=== PATIENT | female | born 1950 | race Caucasian/White ===

== ENCOUNTER 2018-10-08 20:06 | Observation (INO) | payer MEDICARE ==
[2018-10-08] MEDS ORDERED: Nitro 2% OINT* (Nitroglycerin) 1 INCH/PAK PAK TOPICAL ONE (20:20)
[2018-10-08] MEDS ORDERED: Morphine 4 MG/ML VIAL (1 ml) 4 MG/ML VIAL IV ONE (20:21)
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
[2018-10-08 20:44] LABS: ABS Eosinophils 0.1 10^3/ul (0-0.6); ABS Lymphocytes 1.8 10^3/ul (1.0-4.8); ABS Monocytes 0.4 10^3/ul (0-0.8); ABS Neutrophils 3.6 10^3/ul (1.5-7.7); Eosinophil % 1.8 %; Hematocrit 36 % (35-47); Hemoglobin 11.9 g/dL (12.0-16.0); Lymphocyte % 30.2 %; Mean Corpuscular HGB Conc 33 g/dL (31-36); Mean Corpuscular Hemoglobin 27 pg (27-31); Mean Corpuscular Volume 82 fL (80-97); Mean Platelet Volume 8.4 fL (7.4-10.4); Platelet Count 159 10^3/uL (150-450); Red Blood Count 4.42 10^6 /uL (3.70-4.87); Red Cell Distribution Width 16 % (10.5-15); White Blood Count 5.9 10^3/uL (3.5-10.8)
[2018-10-08 20:45] LABS: INR 1.09 (0.82-1.09)
[2018-10-08 20:55] LABS: Albumin 4.2 g/dL (3.2-5.2); Albumin/Globulin Ratio 1.6 (1-3); BUN/Creatinine Ratio 14.3 (8-20); Calcium 9.3 mg/dL (8.6-10.3); EGFR African American 63.4 (>60); EGFR Non-African American 52.4 (>60); Globulin 2.7 g/dL (2-4); Potassium 3.7 mmol/L (3.5-5.0); Total Bilirubin 0.6 mg/dL (0.2-1.0); Total Protein 6.9 g/dL (6.4-8.9)
--- NOTE | 2018-10-08 22:15 | ED ---
Progress - Progress Note Progress Note: Receiving sign out from Dr. Heard at 2200 pending 2nd troponin, UA, and gallbladder US report. Gallbladder US: No radiographic findings to correlate with patients symptomatology. ED Provider has reviewed this report. Labs revealed no remarkable findings. The patient is still experiencing chest pain. The patient will be admitted. Dr. Moser, hospitalist, accepted the patient for admission. The plan was discussed with the patient and she was agreeable with this plan. Re-Evaluation - Re-Evaluation First Eval Re-Evaluation Time: 22:27 Comment: Patient is still experiencing chest pain. Discussed plan for admission with patient. Course/Dx - Course Course Of Treatment: Receiving sign out from Dr. Heard at 2200 pending 2nd troponin, UA, and gallbladder US report. Gallbladder US: No radiographic findings to correlate with patients symptomatology. ED Provider has reviewed this report. Labs revealed no remarkable findings. The patient is still experiencing chest pain. The patient will be admitted. Dr. Moser, hospitalist, accepted the patient for admission. The plan was discussed with the patient and she was agreeable with this plan. - Diagnoses Provider Diagnoses: Chest pain - Provider Notifications Discussed Care Of Patient With: Mila Moser Time Discussed With Above Provider: 20:15 Instructed by Provider To: Admit As Inpatient Discharge - Sign-Out/Discharge Documenting (check all that apply): Patient Departure - Admission Patient Received Moderate/Deep Sedation with Procedure: No - Discharge Plan Condition: Stable Disposition: ADMITTED TO [facility] Referrals: Marie Gu MD [Primary Care Provider] - - Attestation Statements Document Initiated by Scribe: Yes Documenting Scribe: Marco Saucedo Provider For Whom Robb is Documenting (Include Credential): Kulwinder James MD Scribe Attestation: Marco Rob scribed for Kulwinder James MD on 10/08/18 at 2226. Status of Scribe Document: Ready
[2018-10-08] MEDS ORDERED: Pantoprazole IV* 40 MG IV ONE (22:30)
[2018-10-08] MEDS ORDERED: NS 0.9% 1000 ML** 1,000 ML IV ONE (22:32)
[2018-10-08] MEDS ORDERED: Ondansetron INJ* 2 MG/ML VIAL IV ONE (22:33)
[2018-10-08] MEDS ORDERED: Morphine INJ* 2 MG/ML 1 ML SYRINGE (TWO MG - NEW SYRINGE VERSION) IV PRN (22:37)
[2018-10-08] MEDS ORDERED: Acetaminophen TAB* 325 MG PO PRN (22:37)
[2018-10-08] MEDS ORDERED: Ondansetron INJ* 2 MG/ML VIAL IV PRN (22:37)
[2018-10-08] MEDS ORDERED: Magnesium Hydroxide LIQ* 30 ML UDC PO PRN (22:39)
[2018-10-08] MEDS ORDERED: NS 0.9% 1000 ML** 1,000 ML IV SCH (22:45)
[2018-10-08 23:04] LABS: Albumin 4.1 g/dL (3.2-5.2); Albumin/Globulin Ratio 1.6 (1-3); BUN/Creatinine Ratio 16.2 (8-20); Calcium 9.2 mg/dL (8.6-10.3); EGFR African American 67.9 (>60); EGFR Non-African American 56.1 (>60); Globulin 2.5 g/dL (2-4); Total Bilirubin 0.6 mg/dL (0.2-1.0); Total Protein 6.6 g/dL (6.4-8.9)
[2018-10-09] LABS: Urine Appearance Cloudy; Urine Bacteria Absent (Absent); Urine Bilirubin Negative (Negative); Urine Blood Negative (Negative); Urine Color Yellow; Urine Glucose Negative (Negative); Urine Ketones 1+ (Negative); Urine Nitrite Negative (Negative); Urine Protein Negative (Negative); Urine Red Blood Cell Absent (Absent); Urine Specific Gravity 1.012 (1.010-1.030); Urine Urobilinogen Negative (Negative); Urine White Blood Cell 2+(11-20/hpf) (Absent)
--- NOTE | 2018-10-09 01:11 | HP ---
CC: Dr. Marie Perdomo * HISTORY AND PHYSICAL: DATE OF ADMISSION: 10/08/18 PRIMARY CARE PROVIDER: Dr. Marie Perdomo. CHIEF COMPLAINT: Chest pain and abdominal pain. HISTORY OF PRESENT ILLNESS: Mrs. Carbajal is a 67-year-old female with past medical history of anxiety and depression as well as hypertension who presented to the hospital after eating spicy fish while dining out and developed left upper quadrant abdominal pain. The patient stated that almost instantaneously after she ate the fish, she started experiencing stomach pain. She indicated her left upper quadrant of the abdomen. Subsequently, on the way home, she became nauseated and nearly passed out. She stated that she has history of fainting in similar situations in the past, which was not unusual for her. She got home and then the nausea somewhat resolved, but she started experiencing chest discomfort. The chest pain was localized in the left upper chest radiating to her left shoulder. It was associated still with some epigastric/ left upper quadrant abdominal pain. Currently, the pain is dull. She describes it as deep inside and mild. She stated that it feels like if she started moving it would go away, but change of position does not change the pain. The pain is also not pleuritic. For some reason, the patient was called STEMI. The patient arrived to the hospital as a STEMI alert, which was later on canceled. The patient's chest discomfort is now minimal. Her troponin is so far negative. She is going to be placed on overnight observation with diagnosis of chest pain, epigastric pain. PAST MEDICAL HISTORY: 1. Anxiety/depression. 2. History of dyslipidemia. 3. History of uterine ablation. 4. Pilonidal cyst removal in the past and rhinoplasty in the past. MEDICATIONS: Include: 1. Amlodipine 10 mg daily. 2. Sizerock-3 fatty acids 1 capsule daily. 3. Loratadine 10 mg daily. 4. Effexor ER 75 mg daily. 5. Lisinopril at 40 mg daily. ALLERGIES: SULFA drugs. FAMILY HISTORY: Positive for father who secondary to heart disease at age of 87, mother who at age of 82 secondary to Alzheimer's. SOCIAL HISTORY: The patient has history of smoking 10 pack-years since she quit over 30 years ago. She rarely uses alcohol and denies any drug use. 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 She lives with her , who is her surrogate. Her 's name is Deshawn, phone number [phone]. REVIEW OF SYSTEMS: Please see the history of present illness. In addition to the above mentioned, the patient stated that she occasionally would have pain in the right mid abdomen, had been ongoing for a couple of years. It happened earlier on today when she was bending down and working in the garden. Currently , she does not have the pain in the right mid abdomen. She also complains of ankle swelling that is worse at the end of the day and is better in the morning. All the remaining 12 systems were reviewed with the patient and were, otherwise , negative. PHYSICAL EXAMINATION GENERAL: The patient is a pleasant 67-year-old female who is in no acute distress. Alert, awake, and oriented x3. VITAL SIGNS: Blood pressure 126/66, heart rate of 61 and regular, respiratory rate 18, oxygen saturation 83% on room air, temperature of 97.0. HEENT: Head: Atraumatic, normocephalic. Eyes: Pupils are equal and reactive to light and accommodation. Oral mucosa moist. NECK: Supple. No JVD. No bruits bilaterally. RESPIRATORY: Clear to auscultation bilaterally. CARDIOVASCULAR: Regular rate and rhythm. No murmur. ABDOMEN: Soft, nontender. Bowel sounds present in all 4 quadrants. EXTREMITIES: There is trace bilateral ankle edema. Pulses are +2 bilaterally. No clubbing or cyanosis. NEUROLOGIC: On neuro evaluation, speech is clear. Cranial nerves II through XII grossly intact. Motor strength is 5/5 bilaterally. SKIN: On evaluation of the skin, no ecchymotic areas or rashes noted. DIAGNOSTIC STUDIES/LAB DATA: Laboratory data showed white blood cell count 5.9 , hemoglobin of 11.9, hematocrit of 36, and platelets of 169. Sodium was 139, potassium 3.7, chloride 104, carbon dioxide 26, BUN 15, creatinine 1.05. Liver function tests are unremarkable. Lactic acid of 1.6. Troponin of 0. Lipase of 29. The patient's gallbladder ultrasound, impression: "No sonographic findings to correlate with the patient's symptomatology." Furthermore, in body of report, it is noted that the patient's common bile duct is 0.4 cm and gallbladder showed no gallstones, wall thickening, or pericholecystic fluid. The patient's EKG showed normal sinus rhythm with supraventricular bigeminy, heart rate in the 70s, and no specific intraventricular conduction delay. ASSESSMENT AND PLAN: 1. I suspect the patient's symptoms are gastrointestinal related. Nevertheless , the patient had an episode of supraventricular bigeminy. She is going to be observed on telemetry monitored bed. Chest x-ray is going to be obtained for further evaluation of the patient's chest. The patient is going to be continued on telemetry monitored bed and her troponins are going to be followed. 2. In regards to the patient's left upper quadrant abdominal pain, it appears to be gastric discomfort related to the patient eating spicy fish. The patient received Protonix in the emergency room. She will continue it p.o. on a daily basis. 3. For DVT prophylaxis, the patient is at moderate risk and she is going to be placed on heparin subcutaneously. TIME SPENT: Approximately 62 minutes were spent on admission of this patient; more than half that time was spent [id number] with the patient during the interview and physical exam. [id number]/[facility] #: [id number] KRISTY
[2018-10-09] MEDS ORDERED: Heparin VIAL(*) 5000 UNITS/ML VIAL (FIVE THOUSAND) SUBCUT SCH (06:00)
[2018-10-09 08:17] LABS: ABS Lymphocytes 0.8 10^3/ul (1.0-4.8); ABS Monocytes 0.4 10^3/ul (0-0.8); Eosinophil % 0.1 %; Hematocrit 35 % (35-47); Hemoglobin 11.6 g/dL (12.0-16.0); Lymphocyte % 13.2 %; Mean Corpuscular HGB Conc 33 g/dL (31-36); Mean Corpuscular Hemoglobin 27 pg (27-31); Mean Corpuscular Volume 82 fL (80-97); Mean Platelet Volume 8.1 fL (7.4-10.4); Platelet Count 181 10^3/uL (150-450); Red Blood Count 4.26 10^6 /uL (3.70-4.87); Red Cell Distribution Width 16 % (10.5-15); White Blood Count 6.2 10^3/uL (3.5-10.8)
[2018-10-09] MEDS ORDERED: amLODIPine TAB* 5 MG PO SCH (09:00)
[2018-10-09] MEDS ORDERED: Pantoprazole TAB * 40 MG TAB PO SCH (09:00)
[2018-10-09] MEDS ORDERED: Cetirizine* 10 MG TAB PO SCH (09:00)
[2018-10-09] MEDS ORDERED: Al Hydrox/Mg Hydrox/Simet LIQ* 30 ML UDC PO PRN (11:14)
[2018-10-09 11:47] VITALS: BP 124/65
--- NOTE | 2018-10-09 22:04 | DS ---
CC: Dr. Marie Perdomo * DISCHARGE SUMMARY: DATE OF ADMISSION: 10/08/18 DATE OF DISCHARGE: 10/09/18 PRIMARY CARE PROVIDER: Dr. Marie Perdomo. ATTENDING PHYSICIAN: Dr. Chintan Li * (dictated by Rubi Colvin NP). PRIMARY DIAGNOSES: 1. Chest pain, suspect gastrointestinal etiology. 2. Left upper quadrant pain. SECONDARY DIAGNOSES: 1. Anxiety. 2. Depression. 3. Hyperlipidemia. STUDIES WHILE IN THE HOSPITAL: 1. EKG, on 10/08/18, shows: Normal sinus rhythm with supraventricular bigeminy and a rate of 70, QTc of 477. No ischemic changes. 2. Gallbladder ultrasound, on 10/08/18, reads as: No sonographic findings to correlate with the patient's symptomatology. 3. Chest x-ray, on 10/08/18, reads as: No active cardiopulmonary disease was noted. Large hiatal hernia. HISTORY OF PRESENT ILLNESS AND HOSPITAL COURSE: Ms. Carbajal is a 67-year-old female with past medical history of anxiety, depression, and dyslipidemia, who presented to the emergency room on 10/08/18 with complaints of chest pain and abdominal pain. Please see the history and physical by Dr. Moser for complete summary of the events leading up to this hospitalization. In short, the patient ate a meal consisting of fish which was spicy. Almost immediately after eating, she began experiencing left upper quadrant pain with associated nausea. Shortly after that, she started experiencing chest discomfort radiating to her left shoulder and epigastric pain. These symptoms prompted her to present to the emergency room. In the emergency room, the patient was noted to have supraventricular bigeminy on EKG. There are no ischemic changes. She did have a negative troponin though because of her risk factors and the presence of supraventricular bigeminy, she was admitted by the hospitalist service for observation. It was suspected that the patient's symptoms were secondary to a gastrointestinal source as her symptoms began shortly after eating a spicy meal. She did have a normal gallbladder ultrasound as noted above, though is noted to have a large hiatal hernia on chest x-ray. She did have 2 additional negative troponins. She was monitored on telemetry overnight and did not have any further supraventricular bigeminy or other arrhythmias. Vital signs remained stable. The patient reported that she vomited one time after getting up to the floor from the emergency room and all of her pain resolved after vomiting. As of this morning, the patient reports feeling well. She has not had any recurrence of the chest or abdominal pain. On exam, she has no focal neurological deficits. Her heart has a regular rate and rhythm without murmurs, rubs, or gallops. Lung sounds are clear to auscultation without rhonchi, wheezes, or rubs. Physical exam is otherwise benign. I did speak at length with the patient about symptoms of chest pain and reasons to present to the emergency room. I did recommend some diet changes and an outpatient stress test for which she seemed to be agreeable. Ms. Carbajal is stable for discharge today. Vital signs are as follows: Temp 98.1, heart rate 58, respiratory rate 16, oxygen saturation 98% on room air, blood pressure 124/65. DISCHARGE MEDICATIONS: New medications: 1. Maalox Plus 30 mL p.o. q.4 hours p.r.n. indigestion. 2. Famotidine 20 mg p.o. b.i.d. Continued medications: 1. Amlodipine 10 mg p.o. daily. 2. Lisinopril 40 mg p.o. daily. 3. Loratadine 10 mg p.o. daily. 4. Fish oil 1000 mg p.o. daily. 5. Venlafaxine 75 mg p.o. daily. DISCHARGE PLAN: Ms. Carbajal will be discharged home. Activity will be as tolerated. Diet will be regular as tolerated, though as I noted above I have advised the patient to make some dietary changes in an attempt to avoid any further abdominal and/or chest pain. Medications are noted above. I have advised the patient that if she does have any further episodes of abdominal or chest pain, to try taking Maalox to see if that resolves her symptoms. If that does not resolve her symptoms, then I have instructed her that she should present to the emergency room. I have also prescribed famotidine as I do think that there may be some component of GERD and the presence of a large hiatal hernia supports this further. She did respond well to pantoprazole well here in the hospital, though I do not feel as though she necessitates PPI therapy at this time. She can continue her other usual medications as noted above and I have not made any further changes. She will need to follow up with her PCP in 4 to 7 days. I would recommend a stress test in the next few months. The patient does have a ANNA score of 2. So, there are some risk factors present. I have advised that she can speak with her PCP about this further. The patient has been advised to return to the emergency room or nearest hospital for any worsening of symptoms, shortness of breath, lightheadedness, dizziness, chest discomfort, high fevers, chills, night sweats, loss of consciousness, or any other worrisome signs or symptoms. DISCHARGE CONDITION: Stable. DISCHARGE DISPOSITION: Home. This is a summarized report of a complex medical history and hospital stay. For further details, please see the entire medical record. TIME SPENT: Approximately 45 minutes was spent on this discharge. RUBI COLVIN NP [id number]/[facility] #: [id number] KRISTY
== END 2018-10-09 12:30 | disposition home or self-care (01) ==
LOC: ED 20:06 → MEDTELE 22:37
PROVIDERS: ADMIT Internal Medicine; ATTEND Internal Medicine
DX: R07.9 Chest pain, unspecified (principal); R10.12 Left upper quadrant pain; F41.9 Anxiety disorder, unspecified; F32.9 Major depressive disorder, single episode, unspecified; E78.5 Hyperlipidemia, unspecified; R11.0 Nausea; I10 Essential (primary) hypertension; Z88.2 Allergy status to sulfonamides; Z87.891 Personal history of nicotine dependence
CPT/HCPCS: 36415; 71045; 76705; 80053; 81003; 81015; 83605; 83690; 84484; 85025; 85610; 87086; 93005; 96361; 96372; 96374; 96375; 99285; A9270-GY; G0378; J1644; J2270; J2405

== ENCOUNTER 2018-12-09 13:50 | Emergency (ER) | payer MEDICARE, OTHER ==
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
[2018-12-09] MEDS ORDERED: NS 0.9% 1000 ML** 1,000 ML IV ONE (14:14)
--- OUTSIDE RECORDS SUMMARY | 2018-12-09 14:39 | XMS REPORT | Continuity of Care Document ---
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 Marie Perdomo MD Primary Care Physician Unavailable Payers Date Identification Numbers Payment Provider Subscriber Policy Number: [id number] Medicare Nya Carbajal PayID: [id number] [address] [place] [address] Policy Number: [id number] [facility] Nya Carbajal PayID: [id number] [address] [place] [address] Problems Active Problems Provider Date Localized, primary osteoarthritis Kathrin Duran MD Onset: 08/07/2016 Current tear of medial cartilage Kathrin Duran MD Onset: 08/07/2016 AND/OR meniscus of knee Obstructive sleep apnea syndrome Kaitlyn Wilkins DNP, RN, Onset: 05/25/2018 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 Tobacco Use Start: Unknown End: Former Cigarette Smoker 10 years 1 Pack Daily Smoking Status Reviewed: 08/24/18 Former Cigarette Smoker 10 years 1 Pack Daily ETOH Use Rarely consumes alcohol Tobacco Use Start: Unknown End: Patient is a former Unknown smoker Recreational Drug Use Denies Drug Use Exercise Type/Frequency Exercises regularly Exercise Type/Frequency Walks 3 times a week Exercise Type/Frequency Floor exercises daily Allergies, Adverse Reactions, Alerts Active Allergies Reaction Severity Comments Date Sulfa Antibiotics 05/19/2013 Medications Active Medications SIG Qnty Indications Ordering Provider Date Mandibular dear , please G47.33 Colette Byrd, 01/05/2018 Advancement Device evaluate and MD fabricate oral Device appliance for mild sleep apnea Preservision/Lutein Unknown Capsules Bilberry Unknown 40mg Capsules Tumeric 1 by mouth 2-3x Unknown 800mg day Digestive Enzymes Unknown Collagen Unknown 1000mg Vitamin B12 1 by mouth every Unknown 1000mcg day Tablets ER Kiester 3 1 by mouth twice a Unknown 1000mg day Capsules Magnesium 1 by mouth 2x day Unknown 400mg Tablets Loratadine 1 by mouth every Unknown 10mg day Tablets MSM 1 by mouth twice a Unknown 500mg day Venlafaxine HCL 1 by mouth every Unknown 75mg day Tablets Vitamin D 1 po qd 90caps Unknown 2000U Capsules Lisinopril 1 by mouth one Unknown 40mg time per day History Medications Klonopin 1-2 tabs by 60tabs Zuleyka Marie 05/20/2012 - 0.5mg Tablets mouth every HYDRAULIC 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 01/04/2018 night at bedtime as needed Pamelor 1 cap by mouth 30caps Bridgett Xie 05/20/2012 - 10mg Capsules every night Kristine George 01/05/2018 Hydrochlorothiazide 1 po qd 90caps Unknown - 25mg Capsules 05/24/2018 Effexor 1 po qd 30caps Unknown - 150mg ER Caps ER 24HR 01/04/2018 Nortriptyline HCL 1 po qhs 30caps Bridgett Xie - Capsules Kristine George 05/19/2013 Clonazepam 1 po bid prn 60tabs Bridgett Xie - 0.5mg Tablets Kristine George 05/19/2013 Multivitamins 1 po qd 100tabs Unknown - Tablets 01/04/2018 Vitamin E Unknown - 05/19/2013 Hair/Skin/Nails 1 - 2 by mouth Unknown - Tablets every day 01/04/2018 Resveratrol Unknown - 100mg Capsules Unknown Medications Administered in Office Medication SIG Qnty Indications Ordering Provider Date Triamcinolone (Kenalog) Kathrin Duran MD 08/07/2016 Injection Vital Signs Date Vital Result Comment 08/24/2018 1:41pm Height 68 inches 5'8" Weight 180.00 lb Heart Rate 78 /min BP Systolic Sitting 120 mmHg Lue Reg Cuff BP Diastolic Sitting 80 mmHg Lue Reg Cuff Respiratory Rate 16 /min O2 % BldC Oximetry 92 % on Ra BMI (Body Mass Index) 27.4 kg/m2 05/25/2018 1:48pm Height 68 inches 5'8" Weight 177.00 lb Heart Rate 76 /min BP Systolic Sitting 140 mmHg Lue regular cuff BP Diastolic Sitting 86 mmHg Lue regular cuff Respiratory Rate 16 /min O2 % BldC Oximetry 98 % BMI (Body Mass Index) 26.9 kg/m2 01/05/2018 10:43am Height 68 inches 5'8" Weight 167.00 lb Heart Rate 62 /min BP Systolic Sitting 158 mmHg Lue reg cuff BP Diastolic Sitting 90 mmHg Lue reg cuff Respiratory Rate 16 /min O2 % BldC Oximetry 95 % On Ra BMI (Body Mass Index) 25.4 kg/m2 Neck Circumference in inches 15 08/07/2016 2:08pm Height 68 inches 5'8" Weight 184.00 lb Heart Rate 60 /min BP Systolic Sitting 128 mmHg BP Diastolic Sitting 72 mmHg Respiratory Rate 16 /min Pain Level 5 BMI (Body Mass Index) 28.0 kg/m2 06/19/2014 8:42am Height 68 inches 5'8" Weight 194.00 lb Heart Rate 72 /min BP Systolic Sitting 144 mmHg BP Diastolic Sitting 78 mmHg Respiratory Rate 16 /min BMI (Body Mass Index) 29.5 kg/m2 05/19/2013 9:58am Heart Rate 76 /min BP Systolic Sitting 120 mmHg BP Diastolic Sitting 70 mmHg Respiratory Rate 18 /min 05/20/2012 8:48am Heart Rate 72 /min BP Systolic 142 mmHg BP Diastolic 84 mmHg BP Diastolic Sitting 0 mmHg Respiratory Rate 16 /min Procedures Date Code Description Status 02/02/2018 55973 Sleep Study Unattended,HRT Rate,Oxygen Sat,Resp Completed Effort/Airflow 08/07/2016 82983 Inject/Drain Joint/Bursa Major W/O US Completed 07/18/2013 93292 Polysomnography Sleep Staging 4+ Parameters Completed Encounters Type Date Location Provider Dx Diagnosis Office Visit 10/09/2018 [facility] Rubi Colvin NP R07.9 Chest pain, 9:19a Assoc,pc unspecified Hospitalists R10.12 Left upper quadrant pain Office Visit 10/08/2018 [facility] Mila Stillhn, R10.9 Unspecified 9:19a Asssilvina núñez M.D. 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 knee S83.231A Complex tear of medial mensc, current injury, r knee, init M25.561 Pain in right knee Office Visit 06/19/2014 8:30a [place] [facility] Bridgett Xie 350.2 Face Pain Services Of Naun George M.D. 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 780.59 [facility] Kristine Valdivia Other 786.09 Dyspnea & Respiratory Abnormalities Other Office Visit 05/19/2013 9:45a [place] Adelso Xie 350.2 [facility] Naun George M.D. 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 If you have difficulty with your equipment, or need to replace your mask or hoses, please contact your homecare agency. If you have any further questions, please call the Sleep Disorder Center at [phone]
--- OUTSIDE RECORDS SUMMARY | 2018-12-09 14:39 | XMS REPORT | Continuity of Care Document ---
:1950 External Reference #:[id number] Author Name Eugenie Lopez Care Team Providers Name Role Phone Marie Perdomo MD Care Team Information Remote Sensing Technologist Unavailable Marie Perdomo MD Primary Care Physician Unavailable Payers Date Identification Numbers Payment Provider Subscriber Policy Number: [id number] Medicare Nya Carbajal PayID: [id number] [address] [place] [address] Policy Number: [id number] [facility] Nya Carbajal PayID: [id number] [address] [place] [address] Problems Active Problems Provider Date Localized, primary osteoarthritis Kathrin Duran MD Onset: 08/07/2016 Current tear of medial cartilage Kathrin Duran MD Onset: 08/07/2016 AND/OR meniscus of knee Obstructive sleep apnea syndrome Kaitlyn Wilkins DNP, RN, Onset: 05/25/2018 [facility]- Family History Date Family Member(s) Observation Comments General Diabetes General Heart Disease General Hypertension General Cancer General Rheumatoid Arthritis General Alzheimer's Disease Father Hypertension Father Heart problems Mother Hypertension Mother Alzheimer's Disease Siblings 3 1 sister, diabetes 1 sister 1 brother Social History Type Date Description Comments Sex Unknown Marital Status Lives With Occupation 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, 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 Tobacco Use Start: Unknown End: Former Cigarette Smoker 10 years 1 Pack Daily Smoking Status Reviewed: 11/17/18 Former Cigarette Smoker 10 years 1 Pack Daily ETOH Use Rarely consumes alcohol Tobacco Use Start: Unknown End: Patient is a former Unknown smoker Recreational Drug Use Denies Drug Use Exercise Type/Frequency Exercises regularly Exercise Type/Frequency Walks 3 times a week Exercise Type/Frequency Floor exercises daily Exercise Type/Frequency [facility] [place] [employer] Allergies, Adverse Reactions, Alerts Active Allergies Reaction Severity Comments Date Sulfa Antibiotics 05/19/2013 Medications Active Medications SIG Qnty Indications Ordering Provider Date Mandibular dear , please G47.33 Colette Walkerali, 01/05/2018 Advancement Device evaluate and MD fabricate oral Device appliance for mild sleep apnea Lisinopril 1 by mouth one time Unknown 40mg per day Venlafaxine HCL 1 by mouth every Unknown 75mg day Tablets MSM 1 by mouth twice a Unknown 500mg day Loratadine 1 by mouth every Unknown 10mg Tablets day Magnesium 1 by mouth day in Unknown 400mg Tablets the evening Digestive Enzymes 1 cap daily in pm Unknown Tumeric 1 by mouth daily Unknown 800mg Preservision/Lutein Unknown Capsules Amlodipine Besylate 1 by mouth every Unknown day 10mg Tablets Lutigold Extra 1 cap daily in am Unknown [place]a Superfood 1 cap daily in am Unknown Immuno-Shield ALL 1 cap daily in am Unknown [employer] Vitamin D-3 1 by mouth every Unknown 1000Unit day Capsules Vitamin B Complex 1 by mouth every Unknown day Tablets History Medications Klonopin 1-2 tabs by 60tabs Zuleyka Marie, 05/20/2012 - 0.5mg Tablets mouth every [facility] 01/04/2018 night at bedtime as needed Pamelor 1 cap by mouth 30caps Bridgett Xie 05/20/2012 - 10mg Capsules every night Kristine George 01/05/2018 Hydrochlorothiazide 1 po qd 90caps Unknown - 25mg Capsules 05/24/2018 Effexor 1 po qd 30caps Unknown - 150mg ER Caps ER 24HR 01/04/2018 Nortriptyline HCL 1 po qhs 30caps Bridgett Butler. - Capsules Kristine George 05/19/2013 Clonazepam 1 po bid prn 60tabs Bridgett Xie - 0.5mg Tablets Kristine George 05/19/2013 Multivitamins 1 po qd 100tabs Unknown - Tablets 01/04/2018 Vitamin D 1 po qd 90caps Unknown - 2000U Capsules 11/17/2018 Vitamin E Unknown - 05/19/2013 Hair/Skin/Nails 1 - 2 by mouth Unknown - Tablets every day 01/04/2018 [place] 3 1 by mouth Unknown - 1000mg Capsules twice a day 11/16/2018 Vitamin B12 1 by mouth Unknown - 1000mcg Tablets ER every day 11/17/2018 Collagen Unknown - 1000mg 11/16/2018 Resveratrol Unknown - 100mg Capsules Unknown Bilberry Unknown - 40mg Capsules 11/16/2018 Medications Administered in Office Medication SIG Qnty Indications Ordering Provider Date Triamcinolone (Kenalog) Kathrin Duran MD 08/07/2016 Injection Vital Signs Date Vital Result Comment 11/17/2018 8:49am Height 68 inches 5'8" Weight 174.12 lb with shoes Heart Rate 64 /min BP Systolic Sitting 148 mmHg ule reg cuff BP Diastolic Sitting 88 mmHg ule reg cuff BP Systolic Standing 150 mmHg ule reg cuff BP Diastolic Standing 84 mmHg ule reg cuff BP Systolic Lying Down 146 mmHg ure reg cuff sitting BP Diastolic Lying Down 82 mmHg ure reg cuff sitting BMI (Body Mass Index) 26.5 kg/m2 08/24/2018 1:41pm Height 68 inches 5'8" Weight [...] 16 /min Procedures Date Code Description Status 11/17/2018 33379 EKG Tracing & Interpretation Completed 02/02/2018 93374 Sleep Study Unattended,HRT Rate,Oxygen Sat,Resp Completed Effort/Airflow 08/07/2016 54786 Inject/Drain Joint/Bursa Major W/O US Completed 07/18/2013 48266 Polysomnography Sleep Staging 4+ Parameters Completed Encounters Type Date Location Provider Dx Diagnosis Office Visit 10/09/2018 [facility] Rubi Colvin NP R07.9 Chest pain, 9:19a Assoc,pc unspecified Hospitalists R10.12 Left upper quadrant pain Office Visit 10/08/2018 [facility] Mila Moser, R10.9 Unspecified 9:19a silvina Roberts M.D. abdominal pain Hospitalists R07.9 Chest pain, unspecified Office Visit 08/24/2018 [facility] G47.33 Obstructive sleep 2:00p [facility] Fabian apnea (adult) Naun (pediatric) Office Visit 05/25/2018 [facility] Kaitlyn G47.33 Obstructive sleep 2:00p [facility] Wilkins, RN, apnea (adult) [facility] [employer] KENNEL-BC (pediatric) Z99.89 Dependence on other enabling machines and devices Office Visit 01/05/2018 11:00a [facility] Colette G47.33 Obstructive sleep [facility] apnea (adult) [facility] (pediatric) R53.83 Other fatigue I10 Essential (primary) hypertension Office Visit 08/07/2016 Orthopedic Kathrin Duran, M17.11 Unilateral primary 2:00p Services Of osteoarthritis, right C.M.A. knee S83.231A Complex tear of medial mensc, current injury, r knee, init M25.561 Pain in right knee Office Visit 06/19/2014 8:30a [facility] Bridgett Xie 350.2 Face Pain [facility] George M.D. 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 780.59 [facility] Kristine Valdivia Other 786.09 Dyspnea & Respiratory Abnormalities Other Office Visit 05/19/2013 9:45a [facility] Bridgett Xie 350.2 [facility] George M.D. 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 at [facility]12/07/2018 8:00 am - [place] [facility] Schedule at [facility]2018 8:30 am - Nurse Visit cc at [facility]11/21/2018 10:00 am - Nurse Visit cc at [facility]12/02/2018 10:30 am - Neri Correia M.D. at [facility]11/17/2018 - Neri Correia M.D.R07.9 Chest pain, unspecifiedNew Orders:Stress Test, Exercise Nuclear, Scheduled: 12/02/18Follow up:ov ABBIE 8 m irma Romero 3 mRecommendations:consider GI reevaluation for hiatal [id number] Essential (primary) hypertensionRecommendations:check home bp's and bring home unit to next visit stop [id number] SyncopeNew Orders:Holter Monitor, Ordered: 11/17/18Recommendations:avoid heat, prolonged standing avoid dehydration decrease caffeine, vtcvgcwR83.1 Premature atrial [id number] Dyspnea on exertionNew Orders:Echocardiogram, Ordered: 11/17/18
[2018-12-09 14:45] LABS: ABS Eosinophils 0.1 10^3/ul (0-0.6); ABS Lymphocytes 1.1 10^3/ul (1.0-4.8); ABS Monocytes 0.5 10^3/ul (0-0.8); Eosinophil % 1.4 %; Hematocrit 37 % (35-47); Hemoglobin 12.4 g/dL (12.0-16.0); Lymphocyte % 20.2 %; Mean Corpuscular HGB Conc 34 g/dL (31-36); Mean Corpuscular Hemoglobin 28 pg (27-31); Mean Corpuscular Volume 82 fL (80-97); Mean Platelet Volume 8.1 fL (7.4-10.4); Nucleated Red Blood Cells % 0.1; Platelet Count 157 10^3/uL (150-450); Red Blood Count 4.47 10^6 /uL (3.70-4.87); Red Cell Distribution Width 15 % (10-15); White Blood Count 5.7 10^3/uL (3.5-10.8)
[2018-12-09] MEDS ORDERED: Acetaminophen TAB* 325 MG PO ONE (14:50)
[2018-12-09 14:51] LABS: Albumin 4.3 g/dL (3.2-5.2); Albumin/Globulin Ratio 1.6 (1-3); Calcium 9.4 mg/dL (8.6-10.3); EGFR African American 76.8 (>60); EGFR Non-African American 63.5 (>60); Globulin 2.7 g/dL (2-4); Potassium 4.1 mmol/L (3.5-5.0); Total Bilirubin 0.7 mg/dL (0.2-1.0)
[2018-12-09 16:09] VITALS: BP 158/75
[2018-12-09] MEDS ORDERED: Ibuprofen TAB* 600 MG PO ONE (16:26)
[2018-12-09 18:07] LABS: Urine Appearance Clear; Urine Bacteria Absent (Absent); Urine Bilirubin Negative (Negative); Urine Blood 1+ (Negative); Urine Color Colorless; Urine Glucose Negative (Negative); Urine Ketones Negative (Negative); Urine Nitrite Negative (Negative); Urine Protein Negative (Negative); Urine Red Blood Cell Absent (Absent); Urine Specific Gravity 1.004 (1.010-1.030); Urine Urobilinogen Negative (Negative); Urine White Blood Cell Absent (Absent)
== END 2018-12-09 17:08 | disposition home or self-care (01) ==
LOC: ED 13:50
DX: S16.1XXA Strain of muscle, fascia and tendon at neck level, initial encounter (principal); V43.52XA Car driver injured in collision with other type car in traffic accident, initial encounter; Y92.410 Unspecified street and highway as the place of occurrence of the external cause; I20.9 Angina pectoris, unspecified; I10 Essential (primary) hypertension; F32.9 Major depressive disorder, single episode, unspecified; Z88.2 Allergy status to sulfonamides; Z79.899 Other long term (current) drug therapy; Z87.891 Personal history of nicotine dependence; K44.9 Diaphragmatic hernia without obstruction or gangrene; M48.02 Spinal stenosis, cervical region; E04.1 Nontoxic single thyroid nodule
CPT/HCPCS: 36415; 70450; 71046; 72125; 80053; 81003; 81015; 83690; 83735; 85025; 96360; 99282; A9270-GY

== ENCOUNTER 2022-01-08 08:56 | Observation (INO) ==
[2022-01-08] MEDS ORDERED: NS 0.9% 1000 ml BAG 1,000 ML IV ONE (09:14)
[2022-01-08 09:58] LABS: ABS Eosinophils 0.1 10^3/ul (0-0.6); ABS Lymphocytes 1.6 10^3/ul (1.0-4.8); ABS Monocytes 0.8 10^3/ul (0-0.8); ABS Neutrophils 8.4 10^3/ul (1.5-7.7); Eosinophil % 0.9 %; Hematocrit 45 % (35-47); Lymphocyte % 14.5 %; Mean Corpuscular HGB Conc 34 g/dL (31-36); Mean Corpuscular Hemoglobin 30 pg (27-31); Mean Corpuscular Volume 88 fL (80-97); Mean Platelet Volume 7.7 fL (7.4-10.4); Platelet Count 178 10^3/uL (150-450); Red Blood Count 5.08 10^6 /uL (3.70-4.87); Red Cell Distribution Width 14 % (10-15); White Blood Count 10.9 10^3/uL (3.5-10.8)
[2022-01-08 10:23] LABS: INR 1.1 (0.89-1.11)
[2022-01-08 10:46] LABS: Albumin 3.9 g/dL (3.2-5.2); Albumin/Globulin Ratio 1.7 (1-3); Calcium 8.9 mg/dL (8.6-10.3); Globulin 2.3 g/dL (2-4); Magnesium 1.9 mg/dL (1.9-2.7); Potassium 4.4 mmol/L (3.5-5.0); Total Bilirubin 1.5 mg/dL (0.2-1.0); Total Protein 6.2 g/dL (6.4-8.9); eGFR CKD-EPI 52.3 (>60)
[2022-01-08] MEDS ORDERED: Iodixanol (CONTRAST) 320 MG/ML 100 ML SDV IV ONE (10:50)
[2022-01-08 11:36] LABS: High Sensitivity Troponin 1 Hr 4 pg/mL (<15)
[2022-01-08 12:56] LABS: Urine Bilirubin Negative (Negative); Urine Blood Trace (Intact) (Negative); Urine Color Straw; Urine Glucose Negative (Negative); Urine Ketones Negative (Negative); Urine Nitrite Negative (Negative); Urine Protein Negative (Negative); Urine Urobilinogen 0.2 (Negative) (Negative); Urine pH 7.5 (5.0-9.0)
[2022-01-08 12:58] LABS: Urine Appearance Clear
[2022-01-08] MEDS ORDERED: Magnesium Hydroxide LIQ 30 ML UDC PO PRN (13:18)
[2022-01-08] MEDS ORDERED: Albuterol HFA INHALER 8 gm MDI INH PRN (13:21)
[2022-01-08 13:33] LABS: Urine Bacteria Absent (Absent); Urine Red Blood Cell Trace(0-2/hpf) (Absent); Urine Squamous Epithelial Cell Present (Absent); Urine White Blood Cell Trace(0-5/hpf) (Absent)
[2022-01-08] MEDS ORDERED: NS 0.9% 1000 ml BAG 1,000 ML IV SCH (14:30)
[2022-01-08] MEDS: Heparin 5000 UNITS/ML 1 mL VIAL SUBCUT SCH ×2 (15:10→21:07)
[2022-01-09] MEDS: Heparin 5000 UNITS/ML 1 mL VIAL SUBCUT SCH (05:10)
[2022-01-09] MEDS ORDERED: Regadenoson 0.4 MG/5 ML SYRINGE ONE (08:12)
[2022-01-09] MEDS ORDERED: Aminophylline 25 MG/ML VIAL ONE (08:12)
[2022-01-09] MEDS ORDERED: Venlafaxine XR 75 mg PO SCH (09:00)
[2022-01-09 12:59] VITALS: BP 138/59
== END 2022-01-09 15:08 | disposition home or self-care (01) ==
LOC: EDHOLD 08:56 → ED 08:56 → SUATTDRO 12:28 → MEDTELE 14:41
PROVIDERS: ADMIT Internal Medicine; ATTEND Student in an Organized Health Care Education/Training Program